=== PATIENT | female | born 1985 | race Caucasian/White ===

== ENCOUNTER 2018-11-19 19:34 | Inpatient (IN) ==
--- NOTE | 2018-11-19 19:43 | PROVIDER DOCUMENTATION ---
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 Patient arrives with GCS of 15 , tachycardic, alert and oriented X3, with slow mentation. Denies use of illicit drugs. Patien reports drinking alcohol today.) Allergies/Adverse Reactions: Allergies Allergy/AdvReac Type Severity Reaction Status Date / Time No Known Allergies Allergy Verified 02/03/16 13:54 Home Medications: Home Medication List Medication Instructions Recorded Confirmed Last Taken Type Alprazolam [Xanax] 0.5 mg PO DAILY 07/07/14 12/19/16 12/18/16 06:30 History Pregabalin [Lyrica] 150 mg PO BID 07/07/14 12/19/16 12/18/16 21:00 History Cyclobenzaprine [Flexeril] 10 mg PO TID #20 tablet 02/03/16 12/19/16 12/18/16 21:00 Rx Omeprazole [Prilosec] 20 mg PO DAILY 08/03/16 12/19/16 12/19/16 06:30 History Sertraline [Zoloft] 25 mg PO DAILY 08/03/16 12/19/16 12/19/16 06:30 History Ibuprofen [Motrin] 800 mg PO Q8H PRN PRN #20 tablet 12/19/16 Unknown Rx Meclizine HCl [Antivert] 50 mg PO BID PRN #10 tablet 12/19/16 Unknown Rx Omeprazole [Prilosec] 20 mg PO DAILY@0700 #20 capsule 12/19/16 Unknown Rx Prazosin HCl 2 mg PO HS 12/19/16 12/19/16 12/14/16 21:00 History Cephalexin [Keflex] 500 mg PO 4XDAY #20 cap 01/12/18 Unknown Rx Promethazine [Phenergan] 25 mg PO Q6H PRN PRN #20 tab 01/12/18 Unknown Rx Review of Systems - Adult - REVIEW OF SYSTEMS - ADULT Constitutional: denies: chills, fever Eyes: reports: no symptoms reported Ears, Nose, Mouth & Throat: reports: no symptoms reported Cardiovascular: reports: see HPI, palpitations Respiratory: reports: no symptoms reported Gastrointestinal: denies: abdominal pain, nausea, vomiting Genitourinary: denies: dysuria Musculoskeletal: reports: no symptoms reported Integumentary: reports: no symptoms reported Neurological: reports: see HPI Psychiatric: reports: anxiety, depression, suicidal thoughts Hematologic/Lymphatic: reports: no symptoms reported Allergic/Immunologic: reports: no symptoms reported All Other Systems: Reviewed and Negative Past History - Adult - PAST MEDICAL HISTORY-ADULT Review of Records: reports: Old Records Reviewed, Nursing Assessment Review, Medications Reviewed, Social history reviewed & non-contributory. Major Childhood Illnesses: reports: denies history Cardiovascular: reports: denies history Respiratory: reports: denies history Gastrointestinal: reports: denies history Obstetrical/Gynecological: reports: denies history Genitourinary: reports: denies history Musculoskeletal: reports: chronic pain, fibromyalgia Neurological: reports: denies history Endocrine/Immune: reports: denies history Other Conditions: reports: denies history - PRIOR SURGERIES/PROCEDURES Surgical/Procedure History: reports: reviewed, not pertinent, appendectomy, cholecystectomy, hysterectomy - PRIOR HOSPITALIZATIONS Prior Hospitalizations: reports: none - IMMUNIZATION STATUS Childhood Immunizations: UTD, See Nurse Assessment Flu Vaccine: See Nurse Assessment - FAMILY HISTORY Family History: reviewed, not pertinent Physical Exam-General - PHYSICAL EXAM-ADULT Initial Vital Signs Reviewed: Yes - CONSTITUTIONAL General Appearance: alert, other (anxious, GCS=15, pressured speech, oriented to person,place, and time) - EYES Eyes: PERRL/EOMI - HEAD, EARS, NOSE, MOUTH & THROAT HENMT: normocephalic/atraumatic, moist mucous membranes, normal ENT inspection - NECK Neck: supple - RESPIRATORY Respiratory: lungs clear - CARDIOVASCULAR Cardiovascular: tachycardia - GASTROINTESTINAL (ABDOMEN) Abdominal Exam: normal bowel sounds, non tender - LYMPHATIC Lymphatic: no adenopathy - MUSCULOSKELETAL Back Exam: normal inspection, no CVA tenderness Extremity: normal range of motion, non-tender Peripheral Pulses: radial (R): 2+, radial (L): 2+ - SKIN Integumentary: normal color, normal turgor, warm/dry - NEUROLOGIC Neurologic: grossly normal, no motor/sensory deficits - PSYCHIATRIC Psych/Mental Status: anxious Progress - PLAN OF CARE/RESULTS Progress/Plan/Lab Results: Vital Signs - 8 hr 11/19/18 21:00 11/19/18 21:02 11/19/18 21:10 Pulse Rate 112 H 112 H 108 H Respiratory Rate 12 16 11 L Blood Pressure 116/58 O2 Sat by Pulse Oximetry 99 99 99 Laboratory Results - last 24 hr 11/19/18 11/19/18 11/19/18 19:30 19:30 19:30 WBC 14.46 H RBC 4.58 Hgb 13.7 Hct 41.1 MCV 89.7 MCH 29.9 MCHC 33.3 RDW Std Deviation 12.9 Plt Count 239 MPV 9.1 Immature Gran % (Auto) 0.1 Neut % (Auto) 67.9 Lymph % (Auto) 23.0 [place] % (Auto) 8.3 Eos % (Auto) 0.6 Baso % (Auto) 0.1 Immature Gran # (Auto) 0.02 Neut # (Auto) 9.82 H Lymph # (Auto) 3.32 [place] # (Auto) 1.20 H Eos # (Auto) 0.08 Baso # (Auto) 0.02 Specimen Type Sample Site pH pCO2 pO2 HCO3 Base Excess Oxyhemoglobin ABG O2 Sat (Calculated) ABG O2 Saturation ABG Carboxyhemoglobin ABG Methemoglobin Cody Test A-a O2 Difference Total Hemoglobin Lactate Liter Flow Blood Gas Modality FiO2 % Sodium 142 Potassium 2.8 L Chloride 103 Carbon Dioxide 21 L Anion Gap 18 BUN 6 L Creatinine 0.7 Estimated GFR/1.73 m2 > 60 BUN/Creatinine Ratio 9 Glucose 154 H Calculated Osmolality 284 Calcium 8.9 Magnesium Total Bilirubin 0.16 L AST 50 H ALT 89 H Alkaline Phosphatase 112 H Total Protein 6.7 Albumin 4.1 Globulin 2.6 Albumin/Globulin Ratio 1.6 Salicylates < 3.00 L Acetaminophen 1.2 L Plasma/Serum Ethyl Alc 11/19/18 11/19/18 11/19/18 19:30 19:30 19:47 WBC RBC Hgb Hct MCV MCH MCHC RDW Std Deviation Plt Count MPV Immature Gran % (Auto) Neut % (Auto) Lymph % (Auto) [place] % (Auto) Eos % (Auto) Baso % (Auto) Immature Gran # (Auto) Neut # (Auto) Lymph # (Auto) [place] # (Auto) Eos # (Auto) Baso # (Auto) Specimen Type ARTERIAL Sample Site R RADIAL pH 7.34 L pCO2 40 pO2 495 H HCO3 21.6 Base Excess -3.9 L Oxyhemoglobin 84.6 L* ABG O2 Sat (Calculated) 16.6 ABG O2 Saturation 99.1 ABG Carboxyhemoglobin 13.90 H* ABG Methemoglobin 0.7 Cody Test YES A-a O2 Difference 168.0 Total Hemoglobin 12.8 Lactate 3.50 H Liter Flow 15.0 Blood Gas Modality NRB FiO2 % 100.0 Sodium Potassium Chloride Carbon Dioxide Anion Gap BUN Creatinine Estimated GFR/1.73 m2 BUN/Creatinine Ratio Glucose Calculated Osmolality Calcium Magnesium 1.5 Total Bilirubin AST ALT Alkaline Phosphatase Total Protein Albumin Globulin Albumin/Globulin Ratio Salicylates Acetaminophen Plasma/Serum Ethyl Alc 33 H Orders Category Date Time Status Admit - [facility] Routine AdmDCTranf 11/19/18 22:32 Active Activity - Up with Assistance ORDERED Care 11/19/18 22:32 Active Intake and Output-Strict ORDERED Care 11/19/18 22:32 Active Misc. NRSG Communication Order DIRECTED Care 11/19/18 20:14 Completed Misc. NRSG Communication Order DIRECTED Care 11/19/18 20:27 Completed Vital Signs Order Q 6-HR ASSESS Care 11/19/18 22:32 Active Z-Document. for Tele Applied ORDERED Care 11/19/18 22:32 Active Regular Diet Diet 11/19/18 22:32 Active cxr [CHEST-2 VIEWS] [RAD] Stat Exams 11/19/18 21:16 Completed ABG [RESP] Routine Lab 11/19/18 19:47 Completed ABG [RESP] Routine Lab 11/20/18 04:41 Completed ACETAMINOPHEN [TDM] Stat Lab 11/19/18 19:30 Completed ALCOHOL BLOOD Stat Lab 11/19/18 19:30 Completed BASIC METABOLIC PANEL [CHEM] Lab 11/20/18 06:00 Uncollected BASIC METABOLIC PANEL [CHEM] Lab 11/21/18 06:00 Uncollected BASIC METABOLIC PANEL [CHEM] Lab 11/22/18 06:00 Uncollected CBC WITH DIFF [HEME] Lab 11/20/18 06:00 Uncollected CBC WITH DIFF [HEME] Lab 11/21/18 06:00 Uncollected CBC WITH DIFF [HEME] Lab 11/22/18 06:00 Uncollected CBC WITH ELECTRONIC DIFF [HEME] Stat Lab 11/19/18 19:30 Completed COMPREHENSIVE METABOLIC PANEL [CHEM] Stat Lab 11/19/18 19:30 Completed HEPATIC FUNCTION [CHEM] Lab 11/20/18 06:00 Uncollected HEPATIC FUNCTION [CHEM] Lab 11/21/18 06:00 Uncollected HEPATITIS PROFILE [HH] Routine Lab 11/20/18 06:00 Ordered MAGNESIUM [CHEM] Lab 11/20/18 06:00 Uncollected MAGNESIUM [CHEM] Lab 11/21/18 06:00 Uncollected MAGNESIUM [CHEM] Stat Lab 11/19/18 19:30 Completed SALICYLATES [TDM] Stat Lab 11/19/18 19:30 Completed URINE DRUG SCREEN Stat Lab 11/19/18 22:43 Completed 0.9% Sodium Chloride Inj [Ns] 1,000 ml Med 11/19/18 22:32 Active IV 150 mls/hr 0.9% Sodium Chloride Inj [Ns] 1,000 ml Med 11/19/18 20:48 Discontinued IV 999 mls/hr 0.9% Sodium Chloride Inj [Ns] 1,000 ml Med 11/19/18 20:48 Discontinued IV 999 mls/hr Enoxaparin [Lovenox] Med 11/19/18 22:32 Active 40 mg SUBQ Q24H Ibuprofen [Motrin] Med 11/19/18 22:32 Active 800 mg PO Q8H PRN PRN Magnesium Sulfate 2 gm/S.w.i. [Magnesium Sulfate 2 gm/S Med 11/19/18 20:17 Discontinued .w.i] 2 gm in 50 ml IV NOW Ondansetron [Zofran] Med 11/19/18 22:32 Active 4 mg IV Q4H PRN PRN Pantoprazole [Protonix] Med 11/19/18 22:32 Active 40 mg IV Q24H Potassium Chloride 60 meq Med 11/19/18 22:32 Discontinued 0.9% Sodium Chloride Inj [Ns] 500 ml IV ONCE Potassium Chloride E.r. [Klor-Con] Med 11/19/18 20:25 Discontinued 40 meq PO NOW ONE Sodium Chloride 0.9% Med 11/19/18 22:32 Active 10 ml INJ DIRECTED Zolpidem [Ambien] Med 11/19/18 22:32 Active 10 mg PO HS PRN PRN Oxygen Device Stat Oth 11/19/18 19:45 Completed Telemetry [OM.EQ] Routine Oth 11/19/18 22:32 Active EKG [EKG] Routine Ther 11/20/18 06:00 Ordered Transfer/Admit Order [TRANSFER] Routine Transfer 11/19/18 20:59 Completed Result Diagrams: 11/19/18 19:30 11/19/18 19:30 - EKG 1 Time of EKG reading by physician:: 19:38 EKG Read and Signed by:: Jaiden Woods Rate: 119 Rhythm: sinus tach [place]: normal QRS: normal [place] Interval: normal Comments: prolonged QT - CONSULTS/PCP/HOSPITALIST Notification #1 *Consult/PCP/Hospitalist*: Dr. Benoit, hospitalist Time Discussed: 20:20 Consult Disposition: Admit #2 Consult: Poison control Time Discussed: 19:45 Reason/Comments: recommend admit, give 2gm IV Magnesium for prolonged QT, cardiac monitoring Departure - Departure Date of Disposition Decision: 11/20/18 Time of Disposition Decision: 01:00 DIAGNOSIS: Tachycardia, Prolonged QT interval, Suicide attempt Drug overdose, intentional Qualifiers: Encounter type: initial encounter Qualified Code(s): T50.902A - Poisoning by unspecified drugs, medicaments and biological substances, intentional self-harm, initial encounter Disposition: ADMITTED INPATIENT 09 Certified Medical Emergency: Emergent Condition: Stable - Critical Care Note This patient required my direct & personal management of CC.: Yes Attestation - Physician/ HEIKE Attestation Patient care was provided by Advanced Practice Provider:: No The physician spent face to face time with patient:: Yes Advanced Practice Provider documentation review:: Supervising physician onsite and consulted in the evaluation and care of this patient. The physician did have a face to face encounter with the patient.
[2018-11-19 19:53] LABS: ALLEN TEST YES; BE -3.9 mmoll (-3.0-3.0); BLOOD TYPE ARTERIAL; HCO3-(ACT) 21.6 mmoll (20.0-26.0); METHB 0.7 % (0.0-1.5); MODALITY NRB; O2(CT) 16.6 mL/dL (15.0-23.0); PCO2(98.6) 40 mmHg (35-45); PO2(98.6) 495 mmHg (60-100); SAMPLE BLOOD; SAO2 99.1 % (95.0-100.0); THB 12.8 g/dL (11.5-17.4); pH(98.6) 7.34 (7.35-7.45)
[2018-11-19 19:54] LABS: O2HB 84.6 % (95.0-99.0)
[2018-11-19 19:55] LABS: BASO# 0.02 X1000 (0.0-0.2); BASO% 0.1 % (0.0-0.8); EOS# 0.08 X1000 (0.0-0.7); EOS% 0.6 % (0.0-10.0); HEMATOCRIT 41.1 % (37.0-47.0); HEMOGLOBIN 13.7 g/dL (12.0-16.0); IMM GRAN# 0.02 X1000 (0.0-0.04); IMM GRAN% 0.1 % (0.0-0.5); LYMPH# 3.32 X1000 (1.2-3.4); MCH 29.9 PG (27-31); MCHC 33.3 g/dL (33-37); MCV 89.7 FL (81-99); MONO% 8.3 % (1.7-9.3); MPV 9.1 FL (7.4-10.4); NEUT# 9.82 X1000 (1.4-6.5); NEUT% 67.9 % (42.2-75.2); PLT 239 X1000 (130-400); RBC 4.58 XMIL (4.2-5.4); RDW 12.9 % (11.5-14.5); WBC 14.46 X1000 (4.8-10.8)
[2018-11-19] MEDS ORDERED: MAGNESIUM SULFATE 2 GM/S.W.I. 2 GM/50 ML IVPB IV ONE (20:17)
[2018-11-19 20:20] LABS: AGAP 18; ALB/GLOB RATIO 1.6; ALBUMIN 4.1 g/dL (3.5-5.0); ALKALINE PHOSPHATASE 112 U/L (32-104); BUN 6 mg/dL (8-22); CALCIUM 8.9 mg/dL (8.8-10.2); CHLORIDE 103 mmol/L (98-107); COSMO 284; CREATININE 0.7 mg/dL (0.5-0.9); ESTIMATED GFR > 60; GLUCOSE 154 mg/dL (70-104); GOT 50 U/L (10-30); GPT 89 U/L (10-36); POTASSIUM 2.8 mmol/L (3.5-5.1); SODIUM 142 mmol/L (136-145); TCO2 21 mmol/L (25-35); TOTAL BILIRUBIN 0.16 mg/dL (0.20-1.00); TOTAL PROTEIN 6.7 g/dL (6.3-8.3)
[2018-11-19 20:24] LABS: ACETAMINOPHEN 1.2 ug/mL (10-30); SALICYLATES < 3.00 mg/dL (3-10)
[2018-11-19] MEDS ORDERED: KLOR-CON PO ONE (20:25)
[2018-11-19] MEDS ORDERED: NS 1,000 ML IV ONE ×2 (20:48)
--- NOTE | 2018-11-19 21:56 | Diag Imaging Result Doc PS360 ---
EXAM: CHEST-2 VIEWS 11/19/2018 HISTORY: leucocytosis, suspected pna TECHNIQUE: PA and lateral chest COMMENT: There is some elevation of the left hemidiaphragm. There are no previous studies available for comparison. The heart size and pulmonary vascularity are within normal limits. There is no evidence of focal opacity to suggest pneumonia. IMPRESSION: No acute disease. Electronically signed by Bal Ortega 11/19/2018 9:54 PM
[2018-11-19] MEDS ORDERED: ZOFRAN IV PRN (22:32)
[2018-11-19] MEDS ORDERED: SODIUM CHLORIDE 0.9% INJ SCH (22:32)
[2018-11-19] MEDS ORDERED: POTASSIUM CHLORIDE 60 MEQ in NS 500 ML IV ONE (22:32)
[2018-11-19 23:27] LABS: UR AMPHETAMINES QUAL NONE DETECTED (NONE DETECT); UR BARBITUATES QUAL NONE DETECTED (NONE DETECT); UR BENZODIAZEPIN QUAL NONE DETECTED (NONE DETECT); UR CANNABINOIDS QUAL NONE DETECTED (NONE DETECT); UR COCAINE QUAL NONE DETECTED (NONE DETECT); UR METHADONE QUAL NONE DETECTED (NONE DETECT); UR OPIATES QUAL PRESUMPTIVE POSITIVE (NONE DETECT); UR OXYCODONE QUAL NONE DETECTED (NONE DETECT); UR PCP QUAL NONE DETECTED (NONE DETECT)
[2018-11-20] MEDS ORDERED: NS 1,000 ML IV ONE (00:33)
[2018-11-20] MEDS: PROTONIX IV SCH ×2 (00:45→22:19)
[2018-11-20] MEDS: LOVENOX SUBQ SCH ×2 (00:50→22:19)
[2018-11-20] MEDS: MOTRIN PO PRN ×2 (01:06→22:19)
[2018-11-20] MEDS: NS 1,000 ML IV SCH ×2 (01:07→09:20)
--- NOTE | 2018-11-20 01:43 | HISTORY AND PHYSICAL ---
CHIEF COMPLAINT: Drug overdose. HISTORY OF PRESENT ILLNESS: This is a 33-year-old female with a past medical history of anxiety, depression, and PTSD, who was brought by EMS for evaluation of altered mental status and overdose of 2 mg of prazosin. She reports that she ingested 40 tablets of those, trying to kill herself. Upon my evaluation, she denies that she is suicidal any more. Upon arrival to the ER, the [place] Coma Score was 15. She was tachycardic. Upon ER evaluation, we found out that on the EKG the QT was prolonged at 540, so we are going to admit this patient for evaluation, observation in the intensive care unit. PAST MEDICAL HISTORY: 1. Anxiety disorder. 2. PTSD. 3. Fibromyalgia. 4. Osteoarthritis. PAST SURGICAL HISTORY: 1. Total hysterectomy. 2. Laparoscopic cholecystectomy. 3. Appendectomy. ALLERGIES: No known drug allergies. SOCIAL HISTORY: Patient lives with . The patient reports smoking 3/4 of a pack daily. Drinks alcohol occasionally. Denies using any recreational drugs. FAMILY HISTORY: Noncontributory. REVIEW OF SYSTEMS: 1. Eleven systems were reviewed, and all symptoms are related to H and P. PHYSICAL EXAMINATION: VITAL SIGNS: Temperature 98.0 degrees, heart rate 119, respiratory rate 24, blood pressure 116/73, O2 saturation 98% on non-rebreather mask. GENERAL: This is a 33-year-old female lying in bed, in no acute distress. HEENT: Head is normocephalic and atraumatic. Pupils equal, round, reactive to light and accommodation. Anicteric sclerae. Pale conjunctivae. NECK: No JVD noted. No carotid bruits. No lymphadenopathy. No thyromegaly. CARDIOVASCULAR: S1-S2 heard. No murmurs, gallops, or rubs. Regular rate and rhythm. RESPIRATORY: Clear bilaterally to auscultation. No work of breathing or using accessory muscles. ABDOMEN: Soft, nontender to palpation. Bowel sounds present. No organomegaly. EXTREMITIES: No clubbing, cyanosis, or edema. Peripheral pulses present in both legs. NEUROLOGICAL: The patient is alert and oriented x3. Moves 4 extremities. Cranial nerves 2-12 grossly normal. LABORATORY DATA: White cell count 14.46, hemoglobin 13.7, hematocrit 41.1, platelets 239,000. ABG showed pH 7.34, with pCO2 40, PO2 495. That was on a non-rebreather mask at 100%. The BMP is remarkable for potassium 2.8, glucose 154, AST 50, ALT 89, alkaline phosphatase 112. ASSESSMENT AND PLAN: 1. Intentional drug overdose. The patient is being admitted to the hospital because she ingested 40 tablets of prazosin. In the ER, we found out that this patient had a QT prolongation of 540, and also the recommendation from Poison Control is to keep this patient with IV fluids, and observing tomorrow morning, monitor EKG, to see that is resolved. Although the ER staff reported that she was clearly suicidal at the time she arrived to the hospital, upon my examination she denies being suicidal anymore. In any case, we will start IV fluids. We will check an EKG in the morning. We have administered magnesium sulfate for possible torsades. 2. Hypokalemia. We are going to replete potassium and check BMP tomorrow. 3. History of fibromyalgia. The patient is on multiple medications for this condition, including Lyrica and sertraline. Because those can potentially also prolong QT, we are going to hold them all. We will continue to monitor this patient. 4. Tobacco abuse. We will provide a nicotine patch, 21 mg. Further recommendations to follow according to the clinical situation of the patient. cc: Rodriguez Tamayo MD
[2018-11-20 04:49] LABS: ALLEN TEST YES; BE -4.5 mmoll (-3.0-3.0); BLOOD TYPE ARTERIAL; HCO3-(ACT) 21.4 mmoll (20.0-26.0); METHB 1.1 % (0.0-1.5); O2HB 96.4 % (95.0-99.0); PCO2(98.6) 40 mmHg (35-45); PO2(98.6) 111 mmHg (60-100); SAMPLE BLOOD; SAO2 98.9 % (95.0-100.0); THB 10.9 g/dL (11.5-17.4); pH(98.6) 7.33 (7.35-7.45)
[2018-11-20 04:50] LABS: MODALITY CANNULA
[2018-11-20 06:51] LABS: BASO# 0.01 X1000 (0.0-0.2); BASO% 0.1 % (0.0-0.8); EOS# 0.06 X1000 (0.0-0.7); EOS% 0.6 % (0.0-10.0); HEMATOCRIT 33.3 % (37.0-47.0); HEMOGLOBIN 10.6 g/dL (12.0-16.0); IMM GRAN# 0.02 X1000 (0.0-0.04); IMM GRAN% 0.2 % (0.0-0.5); LYMPH% 30.6 % (20.5-51.1); MCH 29.5 PG (27-31); MCHC 31.8 g/dL (33-37); MCV 92.8 FL (81-99); MONO# 0.65 X1000 (0.11-0.59); MPV 9.4 FL (7.4-10.4); NEUT# 6.76 X1000 (1.4-6.5); NEUT% 62.5 % (42.2-75.2); PLT 200 X1000 (130-400); RBC 3.59 XMIL (4.2-5.4); RDW 13.2 % (11.5-14.5)
[2018-11-20 07:10] LABS: AGAP 8; ALB/GLOB RATIO 1.6; ALBUMIN 3.2 g/dL (3.5-5.0); ALKALINE PHOSPHATASE 84 U/L (32-104); BUN 5 mg/dL (8-22); CALCIUM 7.6 mg/dL (8.8-10.2); CHLORIDE 112 mmol/L (98-107); COSMO 278; CREATININE 0.5 mg/dL (0.5-0.9); DIRECT BILIRUBIN < 0.10 mg/dL (0.00-0.20); ESTIMATED GFR > 60; GLUCOSE 91 mg/dL (70-104); GOT 33 U/L (10-30); GPT 59 U/L (10-36); MAGNESIUM 2.1 mg/dL (1.5-2.7); SODIUM 141 mmol/L (136-145); TCO2 21 mmol/L (25-35); TOTAL BILIRUBIN 0.31 mg/dL (0.20-1.00); TOTAL PROTEIN 5.2 g/dL (6.3-8.3)
[2018-11-20 07:52] LABS: POTASSIUM 4.8 mmol/L (3.5-5.1)
[2018-11-20 10:21] LABS: BASO# 0.02 X1000 (0.0-0.2); BASO% 0.3 % (0.0-0.8); EOS% 1.4 % (0.0-10.0); HEMATOCRIT 35.4 % (37.0-47.0); HEMOGLOBIN 11.2 g/dL (12.0-16.0); LYMPH# 3.14 X1000 (1.2-3.4); LYMPH% 43.1 % (20.5-51.1); MCH 29.4 PG (27-31); MCHC 31.6 g/dL (33-37); MCV 92.9 FL (81-99); MONO# 0.56 X1000 (0.11-0.59); MONO% 7.7 % (1.7-9.3); MPV 9.3 FL (7.4-10.4); NEUT# 3.46 X1000 (1.4-6.5); NEUT% 47.5 % (42.2-75.2); PLT 208 X1000 (130-400); RBC 3.81 XMIL (4.2-5.4); RDW 13.3 % (11.5-14.5); WBC 7.28 X1000 (4.8-10.8)
[2018-11-20] MEDS ORDERED: NS 1,000 ML IV SCH (10:28)
--- NOTE | 2018-11-20 10:48 | PROGRESS NOTE ---
DATE: 11/20/2018 SUBJECTIVE: The patient is resting comfortably in bed. Her is at the bedside. She is complaining of some back pain, but I do not think this is new. As per the patient, she tried to hurt herself yesterday, taking a lot of tablets of prazosin, around 40 tablets. As per the patient, she had some personal problems, so she decided to kill herself. This is the first time, but this is not the first time that the patient has thought about hurting herself. She seems to be stable. Laboratory looks better. Liver function tests improving. We have a positive urine toxicology that showed opiates, and also she had some alcohol in blood upon admission. As per the patient, she drank alcohol 2 days ago. OBJECTIVE: Vital Signs: Pulse 81, respiratory rate 19, blood pressure 116/69, oxygen saturation 97 on nasal cannula. HEENT: Head normocephalic. No trauma. PERRLA. Neck: Supple. No JVD. No masses. Central trachea. Chest: Clear to auscultation. No wheezing. No rales. Abdomen: Soft, nontender, nondistended. No hepatosplenomegaly. Extremities: No edema. No clubbing. No cyanosis. Neurological: The patient is alert and oriented x3. No focal deficits. LABORATORY DATA: WBC 7.2, hemoglobin 11.2, hematocrit 35.4, platelets 208,000. Sodium 141, potassium 4.8, chloride 112, bicarbonate 21, BUN 15, creatinine 0.5, glucose 91, calcium 7.6. Magnesium 2.1. AST 33, ALT 59, alkaline phosphatase 84, albumin 3.2. ASSESSMENT AND PLAN: 1. Intentional drug overdose. As per the patient, she had some personal problems so she decided to hurt herself. This is not the first time that she thought about this, but it is the first time that she tried to hurt herself. I will continue to monitor this patient. Liver function tests are still a little bit elevated. Electrocardiogram looks okay. Probably today in the afternoon or tomorrow morning, I will ask Psychiatry Department to evaluate this patient. 2. Hypokalemia, resolved. 3. History of fibromyalgia. She is still complaining of some back pain. 4. Tobacco abuse. This patient has been highly advised against tobacco use. Apparently, she smokes between 12 and 15 per day. I will continue with daily cessation education. 5. This patient's alcohol level was a little bit elevated upon admission. As per the patient, she drinks maybe twice a month, a few drinks. cc: Asher Pruitt MD
[2018-11-20 10:53] LABS: AGAP 7; ALB/GLOB RATIO 1.4; ALBUMIN 3.2 g/dL (3.5-5.0); ALKALINE PHOSPHATASE 86 U/L (32-104); BUN 5 mg/dL (8-22); CHLORIDE 112 mmol/L (98-107); COSMO 278; CREATININE 0.5 mg/dL (0.5-0.9); ESTIMATED GFR > 60; GLUCOSE 94 mg/dL (70-104); GOT 26 U/L (10-30); GPT 57 U/L (10-36); MAGNESIUM 2.2 mg/dL (1.5-2.7); POTASSIUM 4.2 mmol/L (3.5-5.1); SODIUM 141 mmol/L (136-145); TCO2 22 mmol/L (25-35); TOTAL BILIRUBIN 0.39 mg/dL (0.20-1.00); TOTAL PROTEIN 5.5 g/dL (6.3-8.3)
[2018-11-20] MEDS: AMBIEN PO PRN (19:43)
[2018-11-21 07:16] LABS: AGAP 11; ALB/GLOB RATIO 1.5; ALBUMIN 3.4 g/dL (3.5-5.0); ALKALINE PHOSPHATASE 82 U/L (32-104); BUN 5 mg/dL (8-22); CALCIUM 8.6 mg/dL (8.8-10.2); CHLORIDE 111 mmol/L (98-107); COSMO 282; CREATININE 0.5 mg/dL (0.5-0.9); ESTIMATED GFR > 60; GLUCOSE 99 mg/dL (70-104); GOT 18 U/L (10-30); GPT 43 U/L (10-36); POTASSIUM 3.9 mmol/L (3.5-5.1); SODIUM 143 mmol/L (136-145); TCO2 21 mmol/L (25-35); TOTAL BILIRUBIN 0.15 mg/dL (0.20-1.00); TOTAL PROTEIN 5.7 g/dL (6.3-8.3)
--- NOTE | 2018-11-21 08:38 | PROGRESS NOTE ---
DATE: 11/21/2018 SUBJECTIVE: Patient is resting comfortably in bed. No new complaints. As per the patient, she tried to hurt herself, taking around 40 tablets of prazosin. As per the patient, she did it because she had some multiple problems so she decided to kill herself. This is actually the first time that this patient tried to kill herself but, as per the patient, this is not the first time she has thought about doing it. Lab work is better. Liver function is much better. I think this patient is medically cleared to be discharged. I will ask the psychiatry department to evaluate this patient. Hopefully, I can either transfer this patient to a psychiatric unit or discharge this patient home today. OBJECTIVE: Vital Signs: Temperature 98.1 degrees, pulse 61, respiratory rate 18, blood pressure 125/68, oxygen saturation 97% on room air. HEENT: Head normocephalic. No trauma. PERRLA. Neck: Supple. No JVD. No masses. Central trachea. Chest: Clear to auscultation. No wheezing. No rales. Abdomen: Soft, nontender, nondistended. No hepatosplenomegaly. Extremities: No edema. No clubbing. No cyanosis. Neurological Examination: The patient is alert and oriented x3. No focal deficits. Laboratory: Sodium 143, potassium 3.9, chloride 111, bicarbonate 21, BUN 5, creatinine 0.5, glucose 99, calcium 8.6, albumin 3.4. ASSESSMENT AND PLAN: 1. Intentional drug overdose with suicide attempt. As per the patient, she has had some personal problems so she decided to hurt herself. This is not the first time that this patient has thought about hurting herself. Actually, she has been monitored with psychiatry as an outpatient. As per the patient, the last time she saw psychiatry was 5 months ago or so. The liver function tests are getting much better. Vital signs are stable. No telemetry events. She can be discharged today or be transferred to a psychiatric center. 2. Hypokalemia, resolved. 3. History of fibromyalgia, aware. 4. Tobacco abuse. This patient has been highly advised against tobacco use. Apparently, she smokes between 12 to 15 cigarettes per day. We will continue with daily cessation education. 5. This patient's alcohol level was a little bit elevated upon admission but, as per the patient, she drinks occasionally, maybe twice a month, just a few drinks. 6. The patient is medically cleared. Psychiatry will evaluate this patient today to decide further management. cc: Asher Pruitt MD
[2018-11-21 09:09] LABS: HEPATITIS PROFILE ACUTE SEE COMMENTS
--- NOTE | 2018-11-21 09:24 | EKG Report ---
Test Performed on : 11/20/2018 07:06:52 AM Test Reason : prolonged QT Blood Pressure : / mmHG Vent. Rate : 061 BPM Atrial Rate : 061 BPM P-R Int : 130 ms QRS Dur : 080 ms QT Int : 414 ms P-R-T Axes : 032 042 032 degrees QTc Int : 416 ms Normal sinus rhythm. Normal ECG When compared with ECG of 19-NOV-2018 23:21, (Unconfirmed) No significant change was found Unconfirmed Result
--- NOTE | 2018-11-21 10:04 | EKG Report ---
Test Performed on : 11/19/2018 11:21:27 PM Test Reason : ED. No order in [place] Blood Pressure : / mmHG Vent. Rate : 088 BPM Atrial Rate : 088 BPM P-R Int : 130 ms QRS Dur : 074 ms QT Int : 360 ms P-R-T Axes : 055 049 044 degrees QTc Int : 435 ms Normal sinus rhythm. with sinus arrhythmia. Normal ECG When compared with ECG of 19-NOV-2018 19:37, (Unconfirmed) No significant change was found Unconfirmed Result
[2018-11-21] MEDS: MOTRIN PO PRN (10:15)
[2018-11-21] MEDS: ZOLOFT PO SCH (16:25)
--- NOTE | 2018-11-21 17:30 | PROGRESS NOTE ---
DATE: 11/21/2018 I had a large conversation with Mrs. Jain and the , who is at the bedside. She states that she was evaluated by Psychiatry Department and she was completely honest with them. She does not want to be hospitalized. She does not want to be an inpatient psychiatric center. She states that she knows herself better. She is not going to do it again. She states that if she wants to kill herself she will not look for help like she did after taking those pills. I explained to the patient that I did not make that call, I am not a psychiatrist. I told her that I took care of the rest of the medical conditions and after stabilizing the patient, I called psychiatry center for evaluation. I explained to her that I cannot let her go because the psychiatric center recommended to me to put her on an inpatient psychiatric unit. Then I asked the what he thinks about it and he states that this is ridiculous, that nobody talked to him about her because he knows her better. He also states that talking through the screen with the psychiatric center for 10 to 15 minutes is not going to know her and make a diagnosis for her. Again, he feels that he knows her better and she is okay to go home. I asked the nurse to call again the psychiatric center and talk to them so they can tell them everything they told me and make a decision. She is medically stable, but she has an strong family history of Suicide, her mother some years ago and more recently her sister, this is not the first time that this patient thinks about hurting herself, I think this is not the first time that she tried to hurt herself / or commit suicide, but the possibility of doing that again is high with this previous history and family history, Dr Rogers has talked to the patient as well, he has made his recommendations, I believe this patient needs to be hospitalized in an impatient unit as recommended by [facility], I will be part of the decision of keeping this patient in the hospital until we find a bed for her ( 2 MD Hold ), psychiatric social worker supervisor has been notified of our decision, as well as the family service caseworker, the patient's nurse, clay house worker, [facility], and the patient. cc: Asher Pruitt MD [facility]t
[2018-11-21] MEDS: AMBIEN PO PRN (20:35)
[2018-11-21] MEDS: LYRICA PO SCH (20:35)
[2018-11-21] MEDS: XANAX PO SCH (20:36)
[2018-11-21] MEDS ORDERED: PRAZOSIN HCL 2 MG PO SCH (21:00)
[2018-11-22] MEDS: LOVENOX SUBQ SCH (00:58)
[2018-11-22] MEDS: PROTONIX IV SCH (00:59)
--- NOTE | 2018-11-22 04:03 | PROGRESS NOTE ---
DATE: 11/21/2018 Ms. Anita Jain was admitted to the hospital on 11/19/2018 mainly because of drug overdose. Apparently she had taken 40 pills of prazosin. At the time of arrival, she seems to have had QT prolongation. She was subsequently admitted for medical evaluation. Ms. Jain has a past medical history of anxiety disorder, PTSD, fibromyalgia, osteoarthritis. She also has a mother that committed suicide 13 years ago and a twin sister who committed suicide 3 years ago. This is the second time Ms. Jain herself has made suicidal attempt. In any case, Ms. Jain was admitted for further medical care. During the hospital course, she seems to have been medically stable. All her electrolytes and her lab works have been reviewed, and this seems to be all within normal ranges except ALT that is minimally elevated. Her potassium has been corrected as well since admission. It appears that [facility] was consulted because of the history of drug injection and possible suicidal attempt. I understand the recommendation was to get her inpatient bed; however, there is no acute psychiatric bed at [facility] now. The attending physician at the time, Dr. Zelaya, has explained in detail to the patient, and you can please refer to his notes today. Unfortunately, Ms. Jain was very adamant that she wanted to leave. I was asked to go and evaluate the patient so that we can have two MDs for MD hold. When I went to evaluate Ms. Jain this afternoon, she was in the bed. was at the bedside. I politely greeted both of them, introduced myself. We went over her reasons for being in hospital. She had a lot of flight of ideas and extremely very conversational at a very fast rate, almost not allowing me to talk. The was also at the bedside. Every now and then, he would chip in something, but the most concerning was that Ms. Jain believed that the recommendation from [facility] was just recommendation and that she has a right to not obey by that. As I said, Ms. Jain has a family history of a mother that 13 years ago from suicidal attempt, had a twin sister who 3 years ago from suicide, and this is her 2nd attempt. I believe that Ms. Jain is extremely high risk for suicidal consumption, and I think that if she is left to leave, she will eventually commit suicide either now or in the nearest future. I think Ms. Jain needs to be in inpatient psychiatric unit. I think she needs a thorough psychiatric evaluation, and I believe that she needs to be under hold until she is given that psychiatric evaluation. After I gave her my recommendation, the told me to leave the room and that they did not want to talk to me anymore. Ms Jain also said she has had finished talking with me. I greeted them again and then left the room. I have notified the attending nurse and have also notified the attending physician about my conversation and recommendation of Ms. Jain needing to be under MD hold. cc: Cristhian Rogers MD MTDD
[2018-11-22] MEDS: LYRICA PO SCH ×2 (09:36→21:51)
[2018-11-22] MEDS: ZOLOFT PO SCH (09:36)
[2018-11-22] MEDS: XANAX PO SCH ×2 (09:36→21:51)
[2018-11-22] MEDS ORDERED: NICODERM PATCH TD SCH (14:00)
--- NOTE | 2018-11-22 15:18 | DISCHARGE SUMMARY ---
ADMISSION DATE: 11/19/2018 DISCHARGE DATE: 11/22/2018 ADMISSION DIAGNOSIS: 1. Intentional drug overdose. 2. Hypokalemia. 3. History of fibromyalgia. 4. Tobacco abuse. DISCHARGE DIAGNOSIS: 1. Intentional drug overdose with suicide attempt. Apparently, the patient still has continued wishes for suicide, and this is her second attempt. She has a mother, who committed suicide 13 years ago, and she also has a twin sister, who committed suicide around 3 years ago, and she does not routinely follow up with Psych; the last time was around 5 months ago. She had intentionally overdosed on her prazosin, so she had prolongation of her QTc, which had to be followed closely, QTc is improved. 2. Hypokalemia, resolved. 3. Fibromyalgia, stable. 4. Tobacco abuse. The patient has been highly advised against tobacco use. Smokes anywhere from 12-15 cigarettes per day, and has had a daily nicotine patch. 5. Elevated alcohol level on admission, but patient claims to drink only once or twice per month. CONSULTATIONS: Gregory Sigala. PROCEDURES OR SURGERIES: None. HOSPITAL COURSE: On 11/19/2018, Ms. Anita Jain a 33-year-old female was brought in through EMS for evaluation of altered mental status. Apparently, she had overdosed on her 2 mg of prazosin and had apparently ingested around 40 tablets in attempts to kill herself. During the initial evaluation, she denied that she was attempting suicide. Her GCS was 15. She was tachycardic, and she had QT prolongation at 540. She was transferred to the ICU for close observation. She had hypokalemia, which was also treated. Serial EKGs were performed; the last one was yesterday with a QTc that continues to be about 540 but her QTC on the was 416. The EKG from the is not a clear EKG, a lot of artifact. Given the patient's second attempt for suicide, she was deemed appropriate for inpatient care. Dr. Rogers and Dr. Zelaya both documented her need to have inpatient medical care for suicide attempt, so she will be transferred to [facility] today. VITAL SIGNS: Temperature 98.1, heart rate 86, respiratory rate 18, blood pressure 120/84, O2 saturation 100% on room air. LABORATORY DATA: White blood cells 7000, hemoglobin 11, hematocrit 35, platelet count 208; that was on 11/20. On 11/21, sodium 143, potassium 3.9, BUN 5, creatinine 0.5, glucose 99, calcium 8.6, bilirubin 0.15, AST 18, ALT 43, albumin is 3.4. On her urine drug screen on admission, positive for opiates. She had a 33 alcohol level. She had a hepatitis panel performed here all nonreactive. PERTINENT IMAGING: Chest x-ray on 11/19/2018: No acute disease. EKG 11/19 at 19:37: Sinus tachycardia, rate 119, QTc was 940. At 23:21, a repeat EKG showed normal sinus rhythm, rate 88, QTc is 435, and on 11/21/2018 sinus tachycardia, rate 119, this is actually repeated EKG from the one on admission. DISCHARGE TRANSFER MEDICATIONS: 1. Xanax 1 mg p.o. twice daily. 2. Lovenox is not addressed 3. Lyrica 150 mg p.o. twice daily. 4. Zoloft 25 mg p.o. daily. 5. Flexeril 10 mg p.o. 3 times daily. 6. Ibuprofen 800 mg p.o. every 8 hours p.r.n. 7. Prazosin 10 mg p.o. nightly. DISCHARGE ACTIVITY: As tolerated. DIET: Regular. INSTRUCTIONS: Will be per transfer facility, and she is on suicide precautions. DISCHARGE DISPOSITION: Transfer to [facility]. Dictated by DENISSE Mckenzie for Rodriguez Tamayo MD Addendum: Patient seen and examined by myself. Agree with DENISSE note. It reflects my assessment and plan. Patient is being discharged from hospital to [facility] [place]. cc: DENISSE Mckenzie MD [facility]
[2018-11-22 22:29] VITALS: BP 149/91
--- NOTE | 2018-11-23 08:21 | EKG Report ---
Test Performed on : 11/22/2018 5:44:04 PM Test Reason : inpt treatment placement Blood Pressure : / mmHG Vent. Rate : 081 BPM Atrial Rate : 081 BPM P-R Int : 120 ms QRS Dur : 074 ms QT Int : 376 ms P-R-T Axes : 041 029 033 degrees QTc Int : 436 ms Normal sinus rhythm. with sinus arrhythmia. Normal ECG When compared with ECG of 20-NOV-2018 07:06, No significant change was found Unconfirmed Result
== END 2018-11-22 22:33 | DRG 918 ==
LOC: ED 19:34 → SUATTDRO 21:19 → EDIPHOLD 21:19 → 4N 11-20 13:35
PROVIDERS: ATTEND Internal Medicine
CPT/HCPCS: 71020; 71046; 80048; 80053; 80074; 80076; 80101; 80196; 80301; 80307; 80320; 80324; 80329; 80345; 80346; 80353; 80358; 80361; 80365; 82003; 82055; 82805; 83735; 83992; 85025; 93005; 96361; 96365; 96366; 96368; 96375; 99285; A9270; C9113; G0431; G0434; G0479; G0480; G6038; G6039; G6040; J1650; J3475; J3480; J7030; J7040; S0164